=== PATIENT | male | born 1960 | race Caucasian/White ===

== ENCOUNTER 2016-08-17 08:50 | Emergency (ER) | payer OTHER ==
[~2016-08-17] VITALS: Ht 182.9 cm; Wt 89.8 kg
--- NOTE | 2016-08-17 09:00 | ED UPPER/LOWER EXTREMITY COMPL ---
History of Present Illness General Chief Complaint: Lower Extremity Problems Stated Complaint: R LEG PAIN AND SWELLING Source: patient, old records Exam Limitations: no limitations Vital Signs & Intake/Output Vital Signs & Intake/Output ED Intake and Output 08/18 0000 08/17 1200 Intake Total 0 Output Total Balance 0 Intake, Oral 0 Patient 198 lb Weight Allergies Coded Allergies: No Known Allergies (08/17/16) Reconcile Medications Cephalexin (Keflex) 500 MG CAPSULE 1 CAP PO TID cellulitis Triage Note: TRIAGE: PT TO ER C/C LUMP TO LLE, ONSET THURSDAY. REPORTED TO BE HOT TO TOUCH. UNKNOWN INJURY. NOT VISUALIZED AT TRIAGE. REFUSES OFFERED PAIN MEDS AT TRIAGE. Triage Nurses Notes Reviewed? yes Onset: Gradual Duration: day(s): (5), intermittent Timing: recent history Severity: mild Severity Numbers: 4 Pain/Injury Location: Right: Leg. Method of Injury: unknown No Modifying Factors: none Associated Symptoms: none HPI: 56 year old male with no medical history presents to the ER today for evaluation complaining of redness warmth and discomfort to his anterior right galan that began 5 days ago while in [place]. This patient states he flew back last night. He reports to a mild aching pain intermittently. The symptoms he states appear to get better with movement, he denies any known injury trauma or fall. No fever no chills no chest pain no shortness of breath. The patient does not take any medication on a regular basis. No history of DVT denies any swelling to the rest of his leg. There are no other modifying factors or associated symptoms. No radiation of symptoms. No pain with weight bearing. (OBINNA KENYON) Past History Travel History Traveled to [place] past 21 day No Medical History Any Pertinent Medical History? 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 No (OBINNA KENYON) Review of Systems Review of Systems Constitutional: Reports: see HPI. All Other Systems: Reviewed and Negative Comments Review of systems: See HPI, All other systems negative. Constitutional, no chills no fever, no malaise HEENT: no sore throat no congestion, no ear pain Cardiovascular: No chest pain , no palpitation Skin, SEE HPI Respiratory: No dyspnea no cough no sputum no hemoptysis GI: No nausea no vomiting, no diarrhea, no bloating/constipation : No dysuria No hematuria Muscle skeletal: No joint pain, no joint swelling, no back pain, no neck pain, Neurologic: No numbness no headache Psych: No stress Heme/endocrine: No bruising no bleeding Immunology: No lymphadenopathy, (OBINNA KEYNON) Physical Exam Physical Exam General Appearance: well developed/nourished, no apparent distress, alert, awake Comments: Well-developed well-nourished patient in no apparent distress. HEENT: Atraumatic, extraocular motion intact Neck: Supple, FROM Back: FROM Cardiovascular: Regular rate and rhythms no murmurs Respiratory: No respiratory distress. Patient speaking in full complete sentences. Breath sounds clear to auscultation bilaterally: NO W/R/R Upper Extremities: full range of motion Hip/Pelvis: Atraumatic/Stable. FROM. No pain with pelvic compression Knee: Atraumatic/stable. FROM. No joint swelling, no effusion. No laxity. Negative mayra/anterior drawer test. No pain with ROM Leg: There is a 8 x 5 cm area of warmth and erythema and tenderness to the anterior medial right galan, there is no streaking up the leg the calf is nontender atraumatic, NEG HOMANS, Nontender. No edema, 5 out of 5 strength in the lower extremity, normal dorsiflexion of great toe bilaterally, gross sensation is intact Ankle/Foot: Atraumatic/stable. Skin intact. FROM. No swelling, no effusion. No laxity on exam Pulses: Normal/equal DP/PT pulses bilaterally. Brisk cap refill Neuro: Alert and oriented x3 Skin: Warm & dry;No appreciable rash on exposed skin Psych: Mood affect normal, normal memory normal judgment. (OBINNA KENYON) Progress Differential Diagnosis: arterial insufficiency, cellulitis, compartment syndrome , contusion, DVT, gout, septic arthritis, sprain, tendon injury, Superficial thromboplebitis, abscess Plan of Care: Orders Procedure Date/time Status US-UNILATERAL VENOUS DOPPLER 03/12 0909 Active us ordered, case d/w dr garcias the borders of the erythema were marked with a surgical pen- the pt will return in 48 hours for wound check. rx for kefelx provided. d/w the pt differneital diagnosis including superficial thrombophlebitis- need for nsaids elevation rest , i advised he return at anytime sooner with any concerns: worsening redness, streaking up skin, fevr, chills, or any other concerns. he feels comfortable with plan, amb with steady gait her ein er (TIMUR MOORE,OBINNA) Diagnostic Imaging: Viewed by Me: Ultrasound. Discussed w/RAD: Ultrasound. Radiology Impression: PATIENT: ABHISHEK HURTADO PRESENT AGE: 56 PATIENT ACCOUNT NO: [id number] : 56 LOCATION: [facility] ORDERING PHYSICIAN: OBINNA MOORE SERVICE DATE: 08/17/16-908 EXAM TYPE: US - US- UNILATERAL VENOUS DOPPLER EXAMINATION: US TRIPLEX LOWER EXTREMITY, RIGHT CLINICAL INFORMATION: Right calf pain, tenderness, swelling and erythema. COMPARISON: None. TECHNIQUE: Color-flow triplex imaging with spectral analysis and compression Doppler were performed on the right lower extremity. FINDINGS: Respiratory variation, normal compression and augmented flow are noted throughout the lower extremity. The visualized common femoral vein, proximal greater saphenous vein, femoral vein, profunda femoral vein, popliteal vein and visualized mid calf venous segments show no evidence of deep venous thrombosis. There is no Granger's cyst. IMPRESSION: Normal triplex scan without evidence of deep venous thrombosis involving the right lower extremity. DICTATED BY: ABHISHEK BARRON MD DATE/TIME DICTATED:08/17/161011 DOORMAKER:GUANACO DATE/ TIME TRANSCRIBED:08/17/161011 CONFIDENTIAL, DO NOT COPY WITHOUT APPROPRIATE AUTHORIZATION. <Electronically signed in Other Vendor System> SIGNED BY: ABHISHEK BARRON MD 08/17/16 1016 (OBINNA KENYON) Departure Departure Time of Disposition: 1021 Disposition: HOME OR SELF CARE Condition: Stable Clinical Impression Primary Impression: Cellulitis Referrals: LYNSEY VALLES DO, MD,ETTA Quezada (PCP/Family) Additional Instructions: keflex as directed, keep leg elevated, ibuprofen 800mg every 8 hours as needed. follow up with primary care physician dr valles or return to the ER in 48-72 hours for wound check. return at anytime sooner with any concerns this antibiotic was sent to [facility] [place] Departure Forms: Customer Survey General Discharge Information Prescriptions: Current Visit Scripts Cephalexin (Keflex) 1 CAP PO TID #21 CAP (OBINNA KENYON) PA/FILENET P8 DEVELOPER Co-Sign Statement Statement: ED Attending supervision documentation- [] I saw and evaluated the patient. I have also reviewed all the pertinent lab results and diagnostic results. I agree with the findings and the plan of care as documented in the PA's/FILENET P8 DEVELOPER's documentation. [X] I have reviewed the ED Record and agree with the PA's/FILENET P8 DEVELOPER's documentation. [] Additions or exceptions (if any) to the PAs/FILENET P8 DEVELOPER's note and plan are summarized below: [] (LEONEL ANDERS,DICK)
--- NOTE | 2016-08-17 10:16 | ULTRASOUND REPORT ---
EXAMINATION: US TRIPLEX LOWER EXTREMITY, RIGHT CLINICAL INFORMATION: Right calf pain, tenderness, swelling and erythema. COMPARISON: None. TECHNIQUE: Color-flow triplex imaging with spectral analysis and compression Doppler were performed on the right lower extremity. FINDINGS: Respiratory variation, normal compression and augmented flow are noted throughout the lower extremity. The visualized common femoral vein, proximal greater saphenous vein, femoral vein, profunda femoral vein, popliteal vein and visualized mid calf venous segments show no evidence of deep venous thrombosis. There is no Granger's cyst. IMPRESSION: Normal triplex scan without evidence of deep venous thrombosis involving the right lower extremity.
[2016-08-17] MEDS ORDERED: KEFLEX500 M1 PO (10:23)
[2016-08-17 10:29] VITALS: BP 132/78
== END 2016-08-17 11:04 ==
LOC: ERH 08:50
DX: L03.116 Cellulitis of left lower limb (principal)